=== PATIENT | female | born 2000 | race Caucasian/White ===

== ENCOUNTER 2019-01-29 13:09 | Outpatient (CLI) | payer OTHER ==
--- NOTE | 2019-01-29 16:04 | CT ---
CT OF THE NECK WITH CONTRAST: COMPARISON: None. HISTORY: Right neck mass. TECHNIQUE: Multiple contiguous axial images were obtained in a CT of the neck with contrast. Sagittal and coron al reformats were performed. FINDINGS: A marker was placed at the area of palpable abnormality in the right neck. This marker medially over lies the patient's right submandibular gland which is symmetric compared to the left. There are also a few adjacent normal-size lymph nodes in this region which are symmetric compared to the left. No suspicious mass is identified. There is mild enlargement of the adenoid tonsils. Otherwise, no mucosal abnormality is seen in the n asopharynx, oropharynx, hypopharynx, or subglottic regions. The parapharyngeal spaces are symmetric. The cervical vasculature is unremarkable. The visualized lung apices and intracranial structures are unremarkable. The osseous structures are unremarkable. IMPRESSION: No suspicious cervical abnormality. POS: [facility]
== END 2019-01-29 13:10 | disposition home or self-care (01) ==
LOC: SCSCT 13:09
DX: R59.0 Localized enlarged lymph nodes (principal)
CPT/HCPCS: 70491